=== PATIENT | female | born 1955 | race Caucasian/White ===

== ENCOUNTER 2021-09-14 14:25 | Emergency (ER) | payer OTHER ==
--- OUTSIDE RECORDS SUMMARY | 2021-09-14 14:27 | XMS REPORT | Continuity of Care Document ---
:[address] [facility] t Address [address] [place] [address] Care Team Providers Name Role Phone Guille Vazquez Attending Clinician Unavailable Jose E Alvarez DO Attending Clinician XENA Attending Clinician Unavailable Guille Vazquez Admitting Clinician Unavailable XENA Admitting Clinician Unavailable Payers Payer Name Policy Type Policy Number Effective Date Expiration Date S jenni [employer] - CHOICE (POS [id number] II) Problems Condition Condition Condition Status Onset Resolution Last Treating Co mments Source Name Details Category Date Date Treatment Clinician Date Paraesopha 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 U nivers geal geal 2-14 ity of hernia hernia 00:00: [place] [address] Medical Branch Obesity Obesity Disease Active 2017-02 Univers (BMI (BMI 2-13 ity of 30-39.9) 30-39.9) 00:00: [place] [address] Medical Branch Hiatal Hiatal Disease Active 2017-02 Overview: Univer s hernia hernia 0-31 Added ity of 00:00: automatic [place] 00 ally from Medical request Branch for surgery [id number] Allergies, Adverse Reactions, Alerts Allergy Allergy Status Severity Reaction(s) Onset Inactive Treating Comm ents Source Name Type Date Date Clinician Adhesive Propensi Active Rash 2017-02 Univer s Tape-Anette ty to 2-14 ity of icones adverse 00:00: [place] reaction 00 [facility] s Branch Hismanal Propensi Active Unknown - 2017-02 Drug no Un nick ty to See comments 0-29 longer on i ty of adverse 00:00: the [place] reaction 00 [facility] HISMANAL DA Active U ANAPHYLAXIS 2008-0 [facility] 9-29 Clear 00:00: [place] [address] [place] [address] Social History Social Habit Start Date Stop Date Quantity Comments Source Tobacco use and 2018-12-07 2018-12-07 Never used Universit y of exposure 00:00:00 [facility]00 [facility] Alcohol intake 2018-12-07 2018-12-07 Current University 00:00:00 00:00:00 non-drinker of [facility] [place] alcohol Branch (finding) Sex Ass[birth year] [facility] of 00:00:00 00:[facility]:00 [facility] Smoking Status Start Date Stop Date Source Never smoker [facility] Medications Ordered Filled Start Stop Current Ordering Indication Dosage Frequency Signature Comments Components Source Medication Medication Date Date Medication? Clinician (SIG) Name Name methylPREDN 2018-02 Yes [id number] Take by Univers ISolone 0-17 mouth ity of (MEDROL, 00:00: SEE-INSTRU Tariq as RAULITO,) 4 mg 00 CTIONS. Medica l tablets follow Branch package directions Magnesium 2017- Yes 30mg Take 30 mg Un nick 30 mg Tab 2-15 by mouth ity of 18:38: daily. [place] 58 Medical Branch vitamin 2017- Yes 250ug Take 250 Unive rs B-12 250 2-15 mcg by ity of mcg tablet 18:38: mouth [place] [address] daily. Medical Branch furosemide 2017- Yes 40mg Take 40 mg U nivers 40 mg 0-25 by mouth ity of tablet 00:00: as needed. [place] 00 Medical Branch amitriptyli 2017- Yes 50mg Take 50 mg Univers ne 50 mg 0-03 by mouth ity of tablet 00:00: at [place] 00 bedtime. Medical Branch simvastatin 2017- Yes 40mg Take 40 mg Univers 40 mg 0-03 by mouth ity of tablet 00:00: at [place] 00 bedtime. Medical Branch Procedures This patient has no known procedures. Encounters Start End Encounter Admission Attending Care Care Encounter Source Date/Time Date/Time Type Type Clinicians Facility Department ID 2020-10-17 2020-10-17 Outpatient COURTNEY George, MICHAEL CRUZI [id number] [facility] 12:00:00 12:00:00 [facility] 2020-04-28 2020-04-28 Patient Antonio OKSONIDO [id number] Univers 00:00:00 00:00:00 Outreach [facility] [id number] i [facility] [id number] Graciela primitivo MARCO [id number] Ri dical 388 Branch 2020-01-09 2020-01-09 Outpatient ROSANGELA_J [facility] [id number] [place] 02:32:00 02:32:00 1118 [facility] Results This patient has no known results.
--- NOTE | 2021-09-14 16:05 | RAD REPORT ---
EXAM DESCRIPTION: RAD - Wrist Right 3 View - 09/14/2021 3:42 pm CLINICAL HISTORY: PAIN COMPARISON: Wrist Right 2 View dated 01/05/2019 FINDINGS: No fracture is identified. Subtle cortical irregularity on the dorsum of the distal radius , seen on the lateral view, is not grossly different from 2019. There is no dislocation or periosteal reaction noted. Concave contour to the radius side margin of the scaphoid bone is unchanged from 201 9. Radiocarpal joint space is narrowed. No foreign body or other soft tissue abnormality. IMPRESSION: No acute right wrist finding confirmed.
--- NOTE | 2021-09-14 16:44 | ER ---
Nurse's Notes [facility] Name: Shante Constantino Age: 66 yrs Sex: Female : 1955 Arrival Date: 09/14/2021 Time: 14:27 Bed DIS2 Private MD: Diagnosis: Pain in right wrist-from fall Presentation: 09/14 14:41 Chief complaint: Patient states: she slipped and fell earlier today. patient denies ap3 hitting her head and denies LOC. patient comes to the ED today for wrist pain, and she believes she may have fractured her right wrist. Coronavirus screen: At this time, the client does not indicate any symptoms associated with coronavirus-19. Ebola Screen: No symptoms or risks identified at this time. Initial Sepsis Screen: Does the patient meet any 2 criteria? No. Patient's initial sepsis screen is negative. Does the patient have a suspected source of infection? No. Patient's initial sepsis screen is negative. Risk Assessment: Do you want to hurt yourself or someone else? Patient reports no desire to harm self or others. Onset of symptoms was September 14, 2021 at 11:30. 14:41 Method Of Arrival: Ambulatory ap3 14:41 Acuity: AAMIR 4 ap3 Triage Assessment: 14:44 General: Appears uncomfortable, Behavior is calm, cooperative. Pain: Complains of pain ap3 in right wrist Pain currently is 8 out of 10 on a pain scale. at worst was 10 out of 10 on a pain scale. Pain began suddenly. Neuro: Level of Consciousness is awake, alert, obeys commands, Oriented to person, place, time, situation. Cardiovascular: Respiratory: Airway is patent Respiratory effort is even, unlabored. Musculoskeletal: Reports pain in right wrist. Historical: - Allergies: 14:43 No Known Allergies; ap3 - PMHx: 14:43 Depressive disorder; Migraine; Hypercholesterolemia; ap3 - Immunization history:: Client reports receiving the 2nd dose of the Covid vaccine. - Social history:: Smoking status: Patient denies any tobacco usage or history of. Screenin:44 Abuse screen: Denies threats or abuse. Nutritional screening: No deficits noted. ap3 Tuberculosis screening: No symptoms or risk factors identified. Fall Risk Fall in past 12 months (25 points). Vital Signs: 14:41 Pulse 99; Resp 17; Temp 98.8; Pulse Ox 100% ; Weight 89.36 kg; Height 5 ft. 4 in. ap3 (162.56 cm); Pain 8/10; 14:41 BP 118 / 80; ap3 14:41 Body Mass Index 33.81 (89.36 kg, 162.56 cm) ap3 ED Course: 14:27 Patient arrived in ED. mr 14:43 Triage completed. ap3 14:44 Arm band placed on left wrist. ap3 15:08 Jon Rosales PA is PHCP. cp 15:08 Jon Lizarraga MD is Attending Physician. cp 15:44 XRAY Wrist RIGHT 3 view In Process Unspecified. EDMS 16:39 Joe Rosenthal, RN is Primary Nurse. jl7 16:48 Velcro wrist splint applied to right wrist. dh3 Administered Medications: 16:45 Drug: Hydrocodone-Acetaminophen (7.5 mg-325 mg) 1 tabs Route: PO; jl7 16:45 Drug: Ibuprofen 800 mg Route: PO; jl7 Outcome: 16:44 Discharge ordered by . cp 16:53 Patient left the ED. jl7 Signatures: Dispatcher [employer] EDIA Rubén Denise mr Jon Rosales PA PA cp Leal, Jahala, RN RN jl7 Racheal Umaña 3 Maritza North RN RN ap3 Corrections: (The following items were deleted from the chart) 14:43 14:43 PMHx: None; ap3 ap3
--- NOTE | 2021-09-14 16:44 | EDPHYS ---
Physician Documentation [facility] Name: Shante Constantino Age: 66 yrs Sex: Female : 1955 Arrival Date: 09/14/2021 Time: 14:27 Bed DIS2 Private MD: WESLEY Physician Jon Lizarraga HPI: 09/14 16:00 This 66 yrs old Female presents to ER via Ambulatory with complaints of Fall Injury, cp Wrist Injury. 16:00 The patient or guardian reports injury, pain. cp 16:00 The complaints affect the right wrist diffusely. Context: resulted from a fall, on an cp outstretched hand. Onset: The symptoms/episode began/occurred today. Associated signs and symptoms: The patient has no apparent associated signs or symptoms. Historical: - Allergies: 14:43 No Known Allergies; ap3 - PMHx: 14:43 Depressive disorder; Migraine; Hypercholesterolemia; ap3 - Immunization history:: Client reports receiving the 2nd dose of the Covid vaccine. - Social history:: Smoking status: Patient denies any tobacco usage or history of. ROS: 16:05 Constitutional: Negative for body aches, chills, fever, poor PO intake. cp 16:05 Neck: Negative for pain with movement, pain at rest. 16:05 Back: Negative for pain at rest, pain with movement. 16:05 MS/extremity: Positive for pain, tenderness, of the right wrist, Negative for deformity. 16:05 Neuro: Negative for dizziness, headache, loss of consciousness, syncope, weakness. 16:05 All other systems are negative. Exam: 16:08 Constitutional: The patient appears in no acute distress, alert, awake, non-toxic, well cp developed, well nourished, uncomfortable. 16:08 Hand exam: Exam is positive for injury, swelling, tenderness, ROM: limited active range cp of motion due to pain, in the right wrist, Perfusion: the extremity is normally perfused throughout, sensation intact. 16:08 Head/Face: Normocephalic, atraumatic. 16:08 Neck: ROM/movement: is normal, is supple, without pain, no range of motions limitations. 16:08 Back: pain, is absent, ROM is normal. Vital Signs: 14:41 Pulse 99; Resp 17; Temp 98.8; Pulse Ox 100% ; Weight 89.36 kg; Height 5 ft. 4 in. ap3 (162.56 cm); Pain 8/10; 14:41 BP 118 / 80; ap3 14:41 Body Mass Index 33.81 (89.36 kg, 162.56 cm) ap3 Procedures: 17:00 Splinting: Splint applied to right wrist using wrist splint, applied by nurse. Examined cp by me, post splint application: neurovascular intact, Patient tolerated well. MDM: 16:43 Data reviewed: vital signs, nurses notes, radiologic studies, plain films. Test cp interpretation: by ED physician or midlevel provider: plain radiologic studies. Counseling: I had a detailed discussion with the patient and/or guardian regarding: the historical points, exam findings, and any diagnostic results supporting the discharge/admit diagnosis, radiology results, to return to the emergency department if symptoms worsen or persist or if there are any questions or concerns that arise at home. 16:44 Patient medically screened. 09/14 14:45 Order name: XRAY Wrist RIGHT 3 view; Complete Time: 16:34 ap3 09/14 16:34 Interpretation: Report reviewed. 09/14 16:40 Order name: Splint - Wrist; Complete Time: 16:48 cp Administered Medications: 16:45 Drug: Hydrocodone-Acetaminophen (7.5 mg-325 mg) 1 tabs Route: PO; jl7 16:45 Drug: Ibuprofen 800 mg Route: PO; jl7 Disposition Summary: 09/14/21 16:44 Discharge Ordered Location: Home cp Problem: new cp Symptoms: have improved cp Condition: Stable cp Diagnosis - Pain in right wrist - from fall cp Followup: cp - With: Private Physician - When: 5 - 6 days - Reason: Recheck today's complaints Discharge Instructions: - Discharge Summary Sheet cp - Wrist Pain, Adult cp Forms: - Medication Reconciliation Form cp - Thank You Letter cp - Antibiotic Education cp - Prescription Opioid Use cp Prescriptions: - Diclofenac Sodium 75 mg Oral tablet,delayed release (DR/EC) - take 1 tablet by ORAL route 2 times per day; 20 tablet; Refills: 0, Product cp Selection Permitted Signatures: Dispatcher [employer] EDMS Jon Rosales PA PA cp Leal, Jahala, RN RN jl7 Maritza North RN RN ap3 Corrections: (The following items were deleted from the chart) 14:43 14:43 PMHx: None; ap3 ap3 09/15 13:21 09/14 16:00 The complaints affect the left wrist diffusely, cp cp 09/15 13:22 09/14 17:00 Splinting: Splint applied to left wrist using wrist splint, applied by cp nurse. Examined by me, post splint application: neurovascular intact, Patient tolerated well, cp
[2021-09-14] MEDS ORDERED: IBUPROFEN 400 MG TAB ONE (16:52)
[2021-09-14] MEDS ORDERED: HYDROCODONE/APAP 7.5/325 MG TAB ONE (16:52)
[2021-09-14 18:26] VITALS: BP 118/80; TEMP 98.8; O2SAT 100
== END 2021-09-14 16:53 | disposition home or self-care (01) ==
LOC: ER 14:25
DX: M25.531 Pain in right wrist (principal); W18.30XA Fall on same level, unspecified, initial encounter
CPT/HCPCS: 99283

== ENCOUNTER 2023-08-16 11:23 | Emergency (ER) | payer OTHER ==
--- OUTSIDE RECORDS SUMMARY | 2023-08-16 12:12 | XMS REPORT | Continuity of Care Document ---
Author Name Unknown Address [address] [facility] [place] [address] [facility] Address [address] [facility] [place] [address] Care Team Providers Care Ssis Architect Name Role Phone PCP, PATIENT DOES NOT HAVE A Primary Care Physic nathan Unavailable CHERELLE CAMP Attending Clinician Sera Pam Cronin MD Attending Clinician [phone] PAM GALLARDO Attending Clinician Unavailable Unknown, Attending Attending Clinician Unavailab le UNKNOWN, ATTENDING Attending Clinician Unavailab YONNY Gomez Attending Clinician Unavailable Yonny Watson DPM Attending Clinician [phone] Rosana Castellanos MD Attending Clinician [phone] Syd Rice CRNA Attending Clinician [phone] Doctor Unassigned, [place] Attending Clinician U juanitoailSadia Palencia Q Attending Clinician Unavailable Cheo Alvarez DO Attending Clinician [phone] XENA Attending Clinician Unavailable TREASURE VELÁSQUEZ Attending Clinician UnavailTREASURE [place] Attending Clinician UnavailCASS Sharif Attending Clinician UnavailYONNY Bernard Admitting Clinician Unavailable Sadia Vazquez Q Admitting Clinician Unavailable CANNON_J Admitting Clinician Unavailable Payers Payer Name Policy Type Policy Number Effective Date Expirati on Date Source [employer] - CHOICE (POS II) [id number] Problems Condition Name Condition Details Condition Category Status Onset Date Resolution Date Last Treatment Date Treating Clinician Comments Source Paraesopha geal hernia Paraesopha geal hernia Disease Active 2017-02 00:00: 00 [facility] Obesity (BMI 30-39.9) Obesity (BMI 30-39.9) Disease Active 2017-02 00:00: 00 [facility] Hiatal hernia Hiatal hernia Disease Active 2017-02 00:00: 00 Overview: Formattin g of this note might be different from the original. Added automatic ally from request for surgery [id number] [facility] Allergies, Adverse Reactions, Alerts Allergy Name Allergy Type Status Severity Reaction(s) Onset Date Inactive Date Treating Clinician Comments Source Adhesive Tape-Manuela icones Propensi ty to adverse reaction s Active Rash 2017-02 00:00: 00 [facility] ADHESIVE TAPE-MANUELA ICONES DRUG Active Rash 2017-02 00:00: 00 [facility] Hismanal Propensi ty to adverse reaction s Active Unknown - See comments 2017-02 00:00: 00 Drug no longer on the market [facility] HISMANAL DRUG Active Unknown-Cmnt 2017-02 00:00: 00 [facility] HISMANAL DA Active U ANAPHYLAXIS 11-19 00:00: 00 [facility] Social History Social Habit Start Date Stop Date Quantity Comments [facility] intake 2023-08-12 00:00:00 2023-08-12 00:00:00 Current non-drinker of alcohol (finding) [facility] Tobacco use and exposure 2023-07-21 00:00:00 2023-07-21 00:00:00 Smokeless tobacco non-user [facility] Alcohol intake 2018-12-07 00:00:00 2018-12-07 00:00:00 Current non-drinker of alcohol (finding) [facility] History of Social function 2018-08-31 00:00:00 2018-08-31 00:00:00 [facility] Sex assigned at 1955 00:00:00 1955 00:00:00 [facility] Smoking Status Start Date Stop Date Source Never smoked tobacco [facility] Medications Ordered Medication Name Filled Medication Name Start Date Stop Date Current Medication? Ordering Clinician Indication Dosage Frequency Signature (SIG) Comments Components Source HYDROcodone -acetaminop hen (NORCO 5) 5-325 mg tablet 1 tablet 07-28 15:45: 00 07-28 14:59 :00 No 1{tbl} 1 tablet, Oral, ONCE, 1 dose, On Tue07/29/23 at 1045, Routine, PACU [facility] citalopram 40 mg tablet 07-28 15:25: 31 Yes 40mg Take 1 tablet by mouth at bedtime. [facility] simvastatin 40 mg tablet 07-28 15:25: 31 Yes 40mg Take 1 tablet by mouth at bedtime. [facility] amitriptyli ne 10 mg tablet 07-28 15:25: 31 Yes 10mg Take 1 tablet by mouth at bedtime. [facility] lactated ringers IV infusion 1,000 mL 07-28 14:15: 00 07-28 17:46 :05 No 1000mL at 75 mL/hr, 1,000 mL, IV Infusion, CONTINUOUS , Starting on Tue07/29/23 at 0915, Until Tue07/29/23 at 1246, Routine, PACU [facility] FENTanyl PF (SUBLIMAZE (PF)) injection 25 mcg 07-28 14:11: 29 07-28 17:46 :05 No 25ug 25 mcg, Slow IV Push, Q5MIN PRN, 4 doses, Starting on Tue07/29/23 at 0911, Until Tue07/29/23 at 1246, Routine, Pain (scale 4-6), PACU [facility] ondansetron (ZOFRAN (PF)) injection 4 mg 07-28 14:11: 29 07-28 17:46 :05 No 4mg 4 mg, Slow IV Push, PRN, 1 dose, Starting on Tue07/29/23 at 0911, Until Tue07/29/23 at 1246, Routine, Nausea and Vomiting (N/V), PACU [facility] sodium chloride 0.9 % irrigation solution 07-28 13:35: 00 07-28 14:24 :24 No PRN, Starting on Tue07/29/23 at 0835, Until Tue07/29/23 at 0924, Intra-op [facility] bupivacaine (preserv free) 0.5% (SENSORCAIN E MPF) 30 mL, lidocaine 1% (PF) (XYLOCAINE) 30 mL 07-28 13:20: 00 07-28 14:24 :24 No PRN, Starting on Tue07/29/23 at 0820, Intra-op [facility] lactated ringers IV infusion 1,000 mL 07-28 12:00: 00 07-28 12:06 :00 No 1000mL at 42 mL/hr, 1,000 mL, IV Infusion, ONCE, 1 dose, On Tue07/29/23 at 0700, Routine, DSU Pre-op [facility] aspirin 325 mg tablet 07-28 00:00: 00 08-26 04:59 :00 Yes [id number] 325mg Take 1 tablet by mouth in the morning and 1 tablet in the evening. Take with meals. Do all this for 28 days. [facility] methylPREDN ISolone (MEDROL, RAULITO,) 4 mg tablets 2018-02 00:00: 00 Yes [id number] Take by mouth SEE-INSTRU CTIONS. follow package directions [facility] Magnesium 30 mg Tab 2017-02 18:38: 58 Yes 30mg Take 30 mg by mouth daily. [facility] vitamin B-12 250 mcg tablet 2017-02 18:38: 58 Yes 250ug Take 250 mcg by mouth daily. [facility] Magnesium 30 mg Tab 2017-02 12:38: 58 Yes 30mg Take 30 mg by mouth daily. [facility] vitamin B-12 250 mcg tablet 2017-02 2-15 12:38: 58 Yes 250ug Take 250 mcg by mouth daily. [facility] furosemide 40 mg tablet 2017-02 00:00: 00 Yes 40mg Take 40 mg by mouth as needed. [facility] amitriptyli ne 50 mg tablet 2017-02 00:00: 00 Yes 50mg Take 50 mg by mouth at bedtime. [facility] simvastatin 40 mg tablet 2017-02 00:00: 00 Yes 40mg Take 40 mg by mouth at bedtime. [facility] Vital Signs Vital Name Observation Time Observation Value Comments Marielle arteaga Systolic blood pressure 2023-08-12 18:52:00 113 mm[Hg] [facility] Diastolic blood pressure 2023-08-12 18:52:00 64 mm[Hg] [facility] Heart rate 2023-08-12 18:52:00 81 /min [facility] Body temperature 2023-08-12 18:52:00 36.94 Yuni [facility] Respiratory rate 2023-08-12 18:52:00 17 /min [facility] Body weight 2023-08-12 18:52:00 90.719 kg [facility] BMI 2023-08-12 18:52:00 34.33 kg/m2 [facility] Oxygen saturation in Arterial blood by Pulse oximetry 2023-08-12 18:52:00 95 /min [facility] Heart rate 2023-07-29 14:50:00 72 /min [facility] Respiratory rate 2023-07-29 14:50:00 19 /min [facility] Oxygen saturation in Arterial blood by Pulse oximetry 2023-07-29 14:50:00 96 /min [facility] Systolic blood pressure 2023-07-29 14:40:00 122 mm[Hg] [facility] Diastolic blood pressure 2023-07-29 14:40:00 102 mm[Hg] [facility] Body temperature 2023-07-29 14:16:00 36.33 [place] [facility] Body height 2023-07-21 18:00:00 162.6 cm [facility] Body weight 2023-07-21 18:00:00 86.183 kg [facility] BMI 2023-07-21 18:00:00 32.61 kg/m2 [facility] Systolic blood pressure 2023-07-29 15:15:00 109 mm[Hg] [facility] acute hospital Diastolic blood pressure 2023-07-29 15:15:00 58 mm[Hg] [facility] acute hospital Heart rate 2023-07-29 15:15:00 66 /min [facility] Respiratory rate 2023-07-29 15:15:00 15 /min [facility] Oxygen saturation in Arterial blood by Pulse oximetry 2023-07-29 15:15:00 95 /min [facility] acute hospital Body temperature 2023-07-29 14:16:00 36.33 [facility] Body height 2023-07-21 18:00:00 162.6 cm [facility] Body weight 2023-07-21 18:00:00 86.183 kg [facility] BMI 2023-07-21 18:00:00 32.61 kg/m2 [facility] Procedures Procedure Date / Time Performed Performing Clinicia n Source XR SHOULDER 2+ VW LEFT 2023-08-12 19:15:19 Esequiel Gallardo [facility] FL TIME OR (NON-REPORTABLE) 2023-07-29 14:18:38 Yonny Watson [facility] FL TIME OR (NON-REPORTABLE) 2023-07-29 14:18:38 Yonny Watson [facility] INTUBATION 2023-07-29 13:09:00 Amy Leyva [facility] [address] - [place] OSTECTOMY COMPLETE 5TH METATARSAL HEAD 2023-07-29 12:43:00 Yonny Watson [facility] [address] - [place] SUB GRFT F/S/N/H/F/G/M/D >= 100SCM 1ST 100SQ CM 2023-07-29 12:43:00 Yonny Watson [facility] NON-[facility] ORDERS 2023-07-19 20:04:29 Doctor Unass igned, [place] [facility] NON-[facility] ORDERS 2023-07-19 20:04:18 Doctor Unass igned, [place] [facility] REFERRAL- REQUEST/RESPONSE 2023-04-21 06:01:00 Doctor Unassigned, [place] [facility] Encounters Start Date/Time End Date/Time Encounter Type Admission Type Attending [facility] Care Facility Care Department Encounter ID Source 2023-08-12 14:05:45 2023-08-12 23:59:00 Hospital Encounter Pam Gallardo [facility] 1.2.840.114 350.1.13.10 4.2.7.2.686 [id number] [facility] 2023-08-12 13:40:00 2023-08-12 14:14:25 Outpatient R PAM GALLARDO [facility] [id number] [facility] 2023-08-12 13:40:00 2023-08-12 14:14:25 Urgent Care Pam Gallardo Unknown, Attending [facility] 1..840.114 350.1.13.10 4.2.7.2.686 [id number] [facility] 2023-07-29 06:55:00 2023-07-29 10:25:00 Outpatient R YONNY WATSON [facility] S[facility] [id number] [facility] 2023-07-29 06:55:00 2023-07-29 10:25:00 Hospital Encounter Yonny Watson 1.2.840.1 [id number] 3.104.2.7 .[id number] .[id number] [facility] 2023-07-29 07:45:00 2023-07-29 09:52:00 Surgery Yonny Watson [facility] 1..840.114 350.1.13.10 4.2.7.2.686 [id number] [facility] 2023-07-29 07:58:00 2023-07-29 09:18:00 Anesthesia Event Rosana Castellanos Brian 1.2.840.1 [id number] 3.104.2.7 .[id number] [facility] 2023-07-21 00:00:00 2023-07-21 00:00:00 Travel 1.2.840.1 [id number] 3.104.2.7 .[id number] .8 1.2.840.114 350.1.13.10 4.2.7.3.698 [id number] [facility] 2023-07-19 00:00:00 2023-07-19 00:00:00 Orders Only Doctor Unassigned, [place] 1.2.840.1 [id number] 3.104.2.7 .3.773356 .8 [id number] [facility] 2023-07-19 00:00:00 2023-07-19 00:00:00 Orders Only Doctor Unassigned, [place] 1.2.840.1 [id number] 3.104.2.7 .3.018684 .[id number] [facility] 2023-04-21 00:00:00 2023-04-21 00:00:00 Orders Only Doctor Unassigned, [place] [facility] 1.2.840.114 350.1.13.10 4.2.7.2.686 [id number] [facility] 2023-04-21 00:00:00 2023-04-21 00:00:00 Patient Secure Msg Doctor Unassigned, [place] [facility] 1.2.840.114 350.1.13.10 4.2.7.2.686 [id number] [facility] 2023-02-07 08:51:00 2023-02-07 08:51:00 Outpatient Sadia Kirby [id number] [facility] 2021-10-23 12:00:00 2021-10-23 12:00:00 Outpatient Sadia Kirby [id number] [facility] 2020-10-17 12:00:00 2020-10-17 12:00:00 [place] [id number] [facility] 2020-04-28 00:00:00 2020-04-28 00:00:00 Patient Outreach Cheo Alvarez [facility] 1.2.840.114 350.1.13.10 4.2.7.2.686 [id number] [facility] 2020-01-09 02:32:00 2020-01-09 02:32:00 Outpatient ROSANGELA_J MMG [id number] [facility] 2018-12-07 10:15:00 2018-12-07 10:00:22 Outpatient TREASURE CELIS CRAIG [facility] [id number] [facility] 2018-04-03 09:45:00 2018-04-03 09:45:00 Outpatient CASS FLEMING [facility] [id number] [facility] Results Test Description Test Time Test Comments Results Result Comments Source XR SHOULDER 2+ VW LEFT 20:09:12 EXAM: XR SHOULDER 2+ VW LEFT HISTORY: 68 years-old Female with left shoulder pain after lifting dog COMPARISON: None. FINDINGS: Radiographs of the left shoulder demonstrate no acute fractures ordislocations. Mild osteoarthrosis of the AC joint consisting of joint spacenarrowing, subchondral sclerosis, and osteophytosis. Glenohumeral joint isintact. Alignment is within normal limits. The soft tissues areunremarkable. [facility] FL TIME OR (NON-REPORTABLE ) 14:19:38 These images do not require a Radiology diagnostic report. [facility] FL TIME OR (NON-REPORTABLE ) 14:19:38 These images do not require a Radiology diagnostic report. [facility] Intubation 13:09:00 Amy Leyva III, CRNA ? ? 07/29/2023 ?8:18 AMIntubationDate/Time: 07/29/2023 8:09 AMUrgency: elective Airway not difficult General Information and Staff Patient location during procedure: ORPerformed: resident/NEW ACCOUNTS BANKING REPRESENTATIVE Performed by: Amy Leyva III, CRNAAuthorized by: Rosana aCstellanos MD ? Indications and Patient ConditionIndications for airway management: anesthesiaSpontaneous Ventilation: absentSedation level: deepPreoxygenated: yesPatient position: sniffingMILS maintained throughoutMask difficulty assessment: 0 - not attempted Final Airway DetailsFinal airway type: supraglottic airway Successful airway: Supraglottic airway: iGel.Size 4Airway Seal Pressure (cm H2O): 22 Number of attempts at approach: 1Ventilation between attempts: noneNumber of other approaches attempted: 0 Additional CommentsSmooth, atraumatic, dentition and lips unchanged from pre-op. [facility] NON-[facility]MB ORDERS 20:04:29 Ordered by an unspecified provider. [facility]
--- NOTE | 2023-08-16 13:05 | RAD REPORT ---
EXAM DESCRIPTION: CT Shoulder Left Wo Con CLINICAL HISTORY: shoulder pain COMPARISON: Shoulder Left 2 View dated 08/16/2023 TECHNIQUE: Thin cut axial noncontrast CT images of the left shoulder were obtained. Sagittal and co gab reformats were generated and reviewed. All CT scans are performed using dose optimization technique as appropriate and may include automated exposure control or mA/KV adjustment according to patient size. FINDINGS: No acute fracture or dislocation. Glenohumeral joint is grossly preserved. Acromioclavicul ar joint shows mild to moderate degenerative changes with marginal spurring and some vacuum phenomeno n within the joint space. No suspicious osseous lesions. The visualized left ribs, and included portions of the vertebrae and sternum are unremarkable. Mild a telectatic changes within the included left lung. The visualized aspects of the lung and mediastinal are otherwise unremarkable. IMPRESSION: No acute osseous abnormality of the left shoulder. [id number] left AC joint degenerative changes..
--- NOTE | 2023-08-16 13:55 | EDPHYS ---
Physician Documentation [facility] Name: Shante Constantino Age: 68 yrs Sex: Female : 1955 Arrival Date: 08/16/2023 Time: 11:23 Bed Treatment Private MD: WESLEY Physician Jon Lizarraga HPI: 08/15 13:48 This 68 yrs old Female presents to ER via Ambulatory with complaints of rodriguez Shoulder Pain. 13:48 The patient or guardian complains of decreased range of motion, pain. left shoulder. rodriguez Context: The problem was sustained at home, resulted from an unknown reason, The patient experiences decreased range of motion, when attempts to raise arm, The patient reports no obvious deformity. Onset: The symptoms/episode began/occurred 5 day(s) ago. Modifying factors: the symptoms are alleviated by remaining still, The symptoms are aggravated by lifting weight, movement. Associated signs and symptoms: The patient has no apparent associated signs or symptoms. Severity of symptoms: At their worst the symptoms were moderate, in the emergency department the symptoms are unchanged. Treatment prior to arrival includes: icing the affected extremity, sling. The patient has not experienced similar symptoms in the past, but family has similar symptoms. Historical: - Allergies: 11:36 No Known Allergies; mb9 - PMHx: 11:31 depressive disorder; Hypercholesterolemia; Migraine; mb9 - PSHx: 11:36 right foot; left wrist; hernia; Ligation of fallopian tube; Total abdominal mb9 hysterectomy; left ankle; Appendectomy; section; - Immunization history:: Adult Immunizations up to date. - Infectious Disease History:: Denies. - Social history:: Smoking status: Patient denies any tobacco usage or history of. - Family history:: not pertinent. ROS: 13:48 Constitutional: Negative for fever, chills, and weight loss, Eyes: Negative for injury, rodriguez pain, redness, and discharge, ENT: Negative for injury, pain, and discharge, Neck: Negative for injury, pain, and swelling, Cardiovascular: Negative for chest pain, palpitations, and edema, Respiratory: Negative for shortness of breath, cough, wheezing, and pleuritic chest pain, Abdomen/GI: Negative for abdominal pain, nausea, vomiting, diarrhea, and constipation, Back: Negative for injury and pain, : Negative for injury, bleeding, discharge, and swelling, Skin: Negative for injury, rash, and discoloration, Neuro: Negative for headache, weakness, numbness, tingling, and seizure, Psych: Negative for depression, anxiety, suicide ideation, homicidal ideation, and hallucinations, Allergy/Immunology: Negative for hives, rash, and allergies, Endocrine: Negative for neck swelling, polydipsia, polyuria, polyphagia, and marked weight changes, Hematologic/Lymphatic: Negative for swollen nodes, abnormal bleeding, and unusual bruising, 13:48 MS/extremity: Positive for injury or acute deformity, contusion, decreased range of motion, pain, tenderness, of the anterior aspect of left shoulder and posterior aspect of left shoulder, Exam: 13:48 Constitutional: This is a well developed, well nourished patient who is awake, alert, rodriguez and in no acute distress. Head/Face: Normocephalic, atraumatic. Eyes: Pupils equal round and reactive to light, extra-ocular motions intact. Lids and lashes normal. Conjunctiva and sclera are non-icteric and not injected. Cornea within normal limits. Periorbital areas with no swelling, redness, or edema. ENT: Nares patent. No nasal discharge, no septal abnormalities noted. Tympanic membranes are normal and external auditory canals are clear. Oropharynx with no redness, swelling, or masses, exudates, or evidence of obstruction, uvula midline. Mucous membranes moist. Neck: Trachea midline, no thyromegaly or masses palpated, and no cervical lymphadenopathy. Supple, full range of motion without nuchal rigidity, or vertebral point tenderness. No Meningismus. Chest/axilla: Normal chest wall appearance and motion. Nontender with no deformity. No lesions are appreciated. Cardiovascular: Regular rate and rhythm with a normal S1 and S2. No gallops, murmurs, or rubs. Normal PMI, no JVD. No pulse deficits. Respiratory: Lungs have equal breath sounds bilaterally, clear to auscultation and percussion. No rales, rhonchi or wheezes noted. No increased work of breathing, no retractions or nasal flaring. Abdomen/GI: Soft, non-tender, with normal bowel sounds. No distension or tympany. No guarding or rebound. No evidence of tenderness throughout. Back: No spinal tenderness. No costovertebral tenderness. Full range of motion. Female : Normal external genitalia. Skin: Warm, dry with normal turgor. Normal color with no rashes, no lesions, and no evidence of cellulitis. Neuro: Awake and alert, GCS 15, oriented to person, place, time, and situation. Cranial nerves II-XII grossly intact. Motor strength 5/5 in all extremities. Sensory grossly intact. Cerebellar exam normal. Normal gait. Psych: Awake, alert, with orientation to person, place and time. Behavior, mood, and affect are within normal limits. 13:48 Musculoskeletal/extremity: Extremities: grossly normal except: noted in the anterior aspect of left shoulder and posterior aspect of left shoulder: decreased ROM, pain, ROM: intact in all extremities, limited active range of motion due to pain, limited passive range of motion due to pain, Circulation is intact in all extremities. Sensation intact. Compartment Syndrome exam of affected extremity: is normal. Weight bearing: able to fully bear weight, Vital Signs: 11:35 BP 119 / 67; Pulse 85; Temp 97.5; Pulse Ox 100% ; Weight 88 kg; Height 5 ft. 4 in. ; mb9 Pain 10/10; 12:45 BP 122 / 74; Pulse 77; Resp 17; Pulse Ox 99% on R/A; rs5 14:08 BP 120 / 77; Pulse 70; Resp 17; Pulse Ox 99% on R/A; rs5 11:35 Body Mass Index 33.30 (88.00 kg, 162.56 cm) mb9 11:35 Pain Scale: Adult mb9 MDM: 11:27 Patient medically screened. [facility] 13:53 Differential diagnosis: Anterior dislocation with fracture, Anterior dislocation rodriguez without fracture, Posterior dislocation with fracture, Posterior dislocation without fracture, humeral head fracture, glenoid fracture, DJD, tendonitis. Data reviewed: vital signs, nurses notes, radiologic studies, CT scan, plain films. Consideration of Admission/Observation Escalation of care including admission/observation considered. I considered the following discharge prescriptions or medication management in the emergency department Medications were administered in the Emergency Department. See MAR. Independent interpretation of the following test(s) in the Emergency Department X-Ray: My interpretation is NO FX , NO DISLOCATION. 08/15 11:39 Order name: Shoulder Left (2 View) XRAY [facility] 08/15 11:44 Order name: Shoulder Left Wo Con; Complete Time: 13:40 EDMS 08/15 11:39 Order name: Aubrey; Complete Time: 12:43 rodriguez Administered Medications: 14:07 Drug: Hydrocodone-Acetaminophen PO (7.5 mg-325 mg) 1 tabs PO once Route: PO; rs5 14:07 Drug: Ibuprofen PO 600 mg PO once Route: PO; rs5 Disposition Summary: 08/16/23 13:55 Discharge Ordered Notes: Location: Home [facility] Problem: new rodriguez Symptoms: have improved rodriguez Condition: Stable rodriguez Diagnosis - Pain in left shoulder rodriguez - Adhesive capsulitis of left shoulder rodriguez Followup: rodriguez - With: Private Physician - When: 2 - 3 days - Reason: Recheck today's complaints, Continuance of care, Re-evaluation by your physician Followup: rodriguez - With: Keny Hong MD - When: 2 - 3 days - Reason: Recheck today's complaints, Re-evaluation by your physician Discharge Instructions: - Discharge Summary Sheet rodriguez - Joint Pain rodriguez - Arthritis rodriguez - Musculoskeletal Pain rodriguez - Shoulder Pain rodriguez - How to Use Cold Therapy, [id number] [facility] - Shoulder Range of Motion Exercises rodriguez - Shoulder Pain, [id number] rodriguez - Arthritis, [id number] rodriguez - How to Use Cold Therapy rodriguez - Adhesive Capsulitis rodriguez - Joint Pain, [id number] [facility] Forms: - Medication Reconciliation Form [facility] - Antibiotic Education rodriguez - Prescription Opioid Use [facility] - Patient Portal Instructions [facility] - Leadership Thank You Letter [facility] Prescriptions: - acetaminophen-codeine 300-30 mg Oral tablet - take 2 tablet ORAL route every 6 hours as needed for pain; 20 tablet; Refills: rodriguez 0, Product Selection Permitted - Ibuprofen 600 mg Oral Tablet - take 1 tablet ORAL route every 6 hours As needed take with food; 30 tablet; [facility] Refills: 0, Product Selection Permitted Signatures: Dispatcher [employer] Jon Carrillo MD MD cha Breneman, Mary Beth RN RN mb9 Nas Tran RN RN rs5
--- NOTE | 2023-08-16 13:55 | ER ---
Nurse's Notes [facility] Name: Shante Constnatino Age: 68 yrs Sex: Female : 1955 Arrival Date: 08/16/2023 Time: 11:23 Bed Treatment Private MD: Diagnosis: Pain in left shoulder;Adhesive capsulitis of left shoulder Presentation: 08/15 11:35 Chief complaint: Patient states: "About 1 week ago, I fell and ever since I haven't mb9 been able to lift my left shoulder all the way up. I went to urgent care and did an XRAY. They told me I need an MRI of my shoulder.". Coronavirus screen: At this time, the client does not indicate any symptoms associated with coronavirus-19. Ebola Screen: No symptoms or risks identified at this time. Initial Sepsis Screen: Does the patient meet any 2 criteria? No. Patient's initial sepsis screen is negative. Does the patient have a suspected source of infection? No. Patient's initial sepsis screen is negative. Risk Assessment: Do you want to hurt yourself or someone else? Patient reports no desire to harm self or others. Onset of symptoms was August 16, 2023. 11:35 Method Of Arrival: Ambulatory mb9 11:35 Acuity: AAMIR 4 mb9 Triage Assessment: 11:38 General: Appears in no apparent distress. Behavior is calm, cooperative. Pain: mb9 Complains of pain in left shoulder Is continuous, Aggravated by increased activity. EENT: No signs and/or symptoms were reported regarding the EENT system. Neuro: Fitch Agitation-Sedation Scale (RASS): 0 - Alert and Calm Level of Consciousness is awake, alert, obeys commands, Oriented to person, place, time, situation, Appropriate for age. Cardiovascular: Patient's skin is warm and dry. Respiratory: Airway is patent Respiratory effort is even, unlabored, Respiratory pattern is regular, symmetrical. GI: No signs and/or symptoms were reported involving the gastrointestinal system. : No signs and/or symptoms were reported regarding the genitourinary system. Derm: Skin is pink, warm \\T\\ dry. Musculoskeletal: Range of motion: limited in left shoulder. Historical: - Allergies: 11:36 No Known Allergies; mb9 - PMHx: 11:31 depressive disorder; Hypercholesterolemia; Migraine; mb9 - PSHx: 11:36 right foot; left wrist; hernia; Ligation of fallopian tube; Total abdominal mb9 hysterectomy; left ankle; Appendectomy; section; - Immunization history:: Adult Immunizations up to date. - Infectious Disease History:: Denies. - Social history:: Smoking status: Patient denies any tobacco usage or history of. - Family history:: not pertinent. Screenin:32 [facility] ED Fall Risk Assessment (Adult) History of falling in the last 3 months, rs5 including since admission Yes- single mechanical fall (1 pt) Confusion or Disorientation No (0 pts) Intoxicated or Sedated No (0 pts) Impaired Gait No (0 pts) Mobility Assist Device Used No (0 pt) Altered Elimination No (0 pt) Score/Fall Risk Level 0 - 2 = Low Risk Oriented to surroundings, Maintained a safe environment. Abuse screen: Denies threats or abuse. Nutritional screening: No deficits noted. Tuberculosis screening: No symptoms or risk factors identified. Assessment: 11:33 General: Appears in no apparent distress. uncomfortable, Behavior is calm, cooperative. rs5 Pain: Complains of pain in left shoulder Pain does not radiate. Pain currently is 4 out of 10 on a pain scale. at worst was 8 out of 10 on a pain scale. Quality of pain is described as aching, Is continuous, Aggravated by repositioning. 11:33 Neuro: Level of Consciousness is awake, alert, obeys commands, Oriented to person, rs5 place, time, situation. Cardiovascular: Patient's skin is warm and dry. Rhythm is regular. Respiratory: Airway is patent Respiratory effort is even, unlabored, Respiratory pattern is regular, symmetrical. GI: Abdomen is round non-distended, Abd is soft and non tender X 4 quads. : No signs and/or symptoms were reported regarding the genitourinary system. EENT: No signs and/or symptoms were reported regarding the EENT system. Derm: Skin is intact, Skin is pink, warm \\T\\ dry. Musculoskeletal: Range of motion: limited in left shoulder. 12:45 Reassessment: Patient and/or family updated on plan of care and expected duration. Pain rs5 level reassessed. Patient is alert, oriented x 3, equal unlabored respirations, skin warm/dry/pink. 14:07 Reassessment: Patient and/or family updated on plan of care and expected duration. Pain rs5 level reassessed. Patient is alert, oriented x 3, equal unlabored respirations, skin warm/dry/pink. Vital Signs: 11:35 BP 119 / 67; Pulse 85; Temp 97.5; Pulse Ox 100% ; Weight 88 kg; Height 5 ft. 4 in. ; mb9 Pain 10/10; 12:45 BP 122 / 74; Pulse 77; Resp 17; Pulse Ox 99% on R/A; rs5 14:08 BP 120 / 77; Pulse 70; Resp 17; Pulse Ox 99% on R/A; rs5 11:35 Body Mass Index 33.30 (88.00 kg, 162.56 cm) mb9 11:35 Pain Scale: Adult mb9 ED Course: 11:24 Patient arrived in ED. rg4 11:27 Jon Lizarraga MD is Attending Physician. rodriguez 11:31 Arm band placed on. mb9 11:32 Patient has correct armband on for positive identification. Placed in gown. Bed in low rs5 position. Call light in reach. Side rails up X2. 11:32 No provider procedures requiring assistance completed. rs5 11:36 Triage completed. mb9 12:05 Shoulder Left Wo Con In Process Unspecified. EDMS 12:17 Nas Tran, RN is Primary Nurse. rs5 13:08 Shoulder Left (2 View) XRAY In Process Unspecified. EDMS 13:54 Keny Hong MD is Referral Physician. rodriguez 14:08 Patient did not have IV access during this emergency room visit. rs5 Administered Medications: 14:07 Drug: Hydrocodone-Acetaminophen PO (7.5 mg-325 mg) 1 tabs PO once Route: PO; rs5 14:07 Drug: Ibuprofen PO 600 mg PO once Route: PO; rs5 Medication: 12:43 VIS not applicable for this client. rs5 Outcome: 13:55 Discharge ordered by . rodriguez 14:08 Discharged to home ambulatory, rs5 14:08 Condition: stable 14:08 Discharge instructions given to patient, family, Instructed on discharge instructions, follow up and referral plans. medication usage, Demonstrated understanding of instructions, follow-up care, medications, Prescriptions given X 2, 14:08 Patient left the ED. rs5 Signatures: Dispatcher [employer] EDMS Jon Lizarraga MD MD cha Garcia, Rubi rg4 Denise Garciah, RN RN mb9 Nas Tran RN RN rs5 Corrections: (The following items were deleted from the chart) 11:39 11:35 Chief complaint: Patient states: "About 1 week ago, I fell and ever since I mb9 haven't been able to lift my left shoulder all the way up." mb9
[2023-08-16] MEDS ORDERED: HYDROCODONE/APAP 7.5/325 MG TAB ONE (14:03)
[2023-08-16] MEDS ORDERED: IBUPROFEN 400 MG TAB ONE (14:03)
[2023-08-16] MEDS ORDERED: IBUPROFEN 200 MG TAB PO ONE (14:03)
--- NOTE | 2023-08-16 14:37 | RAD REPORT ---
EXAM DESCRIPTION: RAD - Shoulder Left 2 View - 08/16/2023 1:06 pm CLINICAL HISTORY: Left shoulder pain status post fall FINDINGS: The patient could not tolerate and external view of the left shoulder being taken so a sca pular view was obtained No fracture or dislocation is seen. Moderate osteoarthritis AC joint
[2023-08-16 14:40] VITALS: BP 120/77; TEMP 97.5; O2SAT 99
== END 2023-08-16 14:08 | disposition home or self-care (01) ==
LOC: ER 11:23
DX: M75.02 Adhesive capsulitis of left shoulder (principal)
CPT/HCPCS: 73200